=== PATIENT | male | born 1975 | race Hispanic/Latino ===

== ENCOUNTER 2018-08-26 13:28 | Emergency (ER) | payer OTHER ==
[~2018-08-26] VITALS: Ht 170.2 cm; Wt 62.3 kg
[2018-08-26] MEDS ORDERED: PLAV1TAB2 PO (13:35)
[2018-08-26 14:08] LABS: HEMATOCRIT 39.8 % (42.0-52.0); HEMOGLOBIN 13.7 g/dl (13.5-17.5); MEAN CORPUSCULAR HEMOGLOBIN 30.5 pg (27.0-33.0); MEAN CORPUSCULAR HGB CONC 34.4 g/dl (32.0-36.5); MEAN CORPUSCULAR VOLUME 88.6 fl (80.0-96.0); PLATELET COUNT, AUTOMATED 188 10^3/uL (150-450); RED BLOOD COUNT 4.49 10^6/uL (4.30-6.10); WHITE BLOOD COUNT 4.6 10^3/uL (4.0-10.0)
[2018-08-26] MEDS ORDERED: ONDANSETRON 4MG/2ML VIAL (J2405) IV ONE (14:30)
[2018-08-26] MEDS ORDERED: NS 1,000 ML IV ONE ×2 (14:30→15:45)
[2018-08-26 14:35] LABS: ATYPICAL LYMPH 1 % (0-5); BASOPHILS 1 % (0-4); LYMPHOCYTES 32 % (16-52); MONOCYTES 15 % (0-8); NEUTROPHILS 42 % (35-75); PLATELET ESTIMATE NORMAL (NORMAL)
[2018-08-26 14:40] LABS: ALBUMIN 3.2 GM/DL (3.2-5.2); ALT/SGPT 14 U/L (12-78); BILIRUBIN,DIRECT 0.1 MG/DL (0.0-0.2); BILIRUBIN,TOTAL 0.4 MG/DL (0.2-1.0); BLOOD UREA NITROGEN 10 MG/DL (7-18); CALCIUM LEVEL 8.6 MG/DL (8.5-10.1); CARBON DIOXIDE LEVEL 27 MEQ/L (21-32); CHLORIDE LEVEL 103 MEQ/L (98-107); CREATININE FOR GFR 1.14 MG/DL (0.70-1.30); GLOMERULAR FILTRATION RATE > 60.0 (>60); GLUCOSE, FASTING 95 MG/DL (70-100); LIPASE 37 U/L (73-393); POTASSIUM SERUM 3.6 MEQ/L (3.5-5.1); SODIUM LEVEL 137 MEQ/L (136-145)
[2018-08-26] MEDS ORDERED: fentaNYL 100 MCG/2 ML INJECTION (J3010) IV ONE ×2 (14:45→16:30)
[2018-08-26] MEDS ORDERED: ACETAMINOPHEN TAB 650MG DOSE (2X325MG) PO ONE (15:00)
[2018-08-26] MEDS: GASTROGRAFIN SOLUTION 30ML PO SCH ×2 (15:14→15:50)
[2018-08-26] MEDS ORDERED: KETOROLAC 30 MG/ML VIAL (J1885) IV ONE (15:45)
[2018-08-26 16:25] LABS: INFLUENZA A AMPLIFICATION NEGATIVE (NEGATIVE); INFLUENZA B AMPLIFICATION NEGATIVE (NEGATIVE)
[2018-08-26] MEDS ORDERED: CIPROFLOXACIN 500 MG TAB PO ONE (16:30)
[2018-08-26] MEDS ORDERED: ISOVUE-370 76% 100ML VIAL (Q9967) As Ordered ONE (16:39)
--- NOTE | 2018-08-26 17:23 | REP ---
Clinical: Abdominal pain with fever and nausea and diarrhea. Technique: Axial contrast enhanced images from the lung bases to the pubic symphysis using oral (per protocol) and 100 ml Isovue 370 intravenous contrast material with coronal and sagittal re-formations. Comparison: None. Findings: Mucosal thickening throughout the colon is most compatible with acute pancolitis. The small bowel is relatively unremarkable. There is no evidence for bowel obstruction. No free air to suggest perforation. No free fluid, drainable collection or abscess. Liver, spleen, pancreas, gallbladder, bilateral adrenal glands and kidneys are normal. Pelvis demonstrates normal bladder and age appropriate prostate/seminal vesicles. No ascites. No free air. No significant adenopathy. Abdominal aorta without aneurysm or dissection. Lung bases are clear. Surrounding musculoskeletal structures are intact. Impression: Findings most compatible with infectious/inflammatory pancolitis. Electronically Signed by Britton Larsen MD 08/26/2018 05:14 P
[2018-08-26] MEDS ORDERED: ZOFR4TAB14 PO (17:28)
[2018-08-26] MEDS ORDERED: CIPR-249 PO (17:28)
[2018-08-26 17:32] VITALS: BP 118/65
== END 2018-08-26 17:40 | disposition home or self-care (01) ==
LOC: M ED 13:28
DX: A04.5 Campylobacter enteritis (principal); Z95.828 Presence of other vascular implants and grafts; Z72.0 Tobacco use; Z79.02 Long term (current) use of antithrombotics/antiplatelets; Z79.899 Other long term (current) drug therapy; Z88.1 Allergy status to other antibiotic agents; Z88.5 Allergy status to narcotic agent
CPT/HCPCS: 74177; 80048; 80076; 81001; 83605; 83690; 85025; 85652; 86140; 87507; 87631; 96361; 96374; 96375; 96376; 99284; J1885; J2405; J3010; Q9963; Q9967

== ENCOUNTER 2018-08-28 21:54 | Emergency (ER) | payer OTHER ==
[~2018-08-28] VITALS: Ht 170.2 cm; Wt 61.8 kg
[~2018-08-28 21:54] MED LIST: CIPR-249 PO; PLAV1TAB2 PO; ZOFR4TAB14 PO
[2018-08-28] MEDS ORDERED: BENA25CA4 PO (22:02)
[2018-08-28] MEDS ORDERED: AZITHROMYCIN 250 MG TAB PO ONE ×2 (22:15→22:30)
[2018-08-28] MEDS ORDERED: diphenhydrAMINE 25 MG CAP PO ONE (22:15)
[2018-08-28] MEDS ORDERED: predniSONE 20 MG TAB PO ONE ×2 (22:15→22:30)
[2018-08-28] MEDS ORDERED: diphenhydrAMINE 25 MG CAP PO SCH (22:30)
[2018-08-28 22:47] VITALS: BP 122/77
[2018-08-29] MEDS ORDERED: PRED20TA PO (19:23)
[2018-08-29] MEDS ORDERED: PEPC1TAB5 PO (19:24)
== END 2018-08-28 22:48 | disposition home or self-care (01) ==
LOC: M ED 21:54
DX: T36.8X5A Adverse effect of other systemic antibiotics, initial encounter (principal); R21 Rash and other nonspecific skin eruption

== ENCOUNTER 2018-08-29 17:31 | Emergency (ER) | payer OTHER ==
[~2018-08-29] VITALS: Ht 170.2 cm; Wt 61.8 kg
[~2018-08-29 17:31] MED LIST changes: +BENA25CA4 PO
[2018-08-29] MEDS ORDERED: LORATADINE 10 MG TAB PO ONE (18:15)
[2018-08-29] MEDS ORDERED: FAMOTIDINE 20 MG TAB PO ONE (18:15)
[2018-08-29] MEDS ORDERED: ALBUTEROL SULFATE 2.5 MG/0.5 ML INH NEB SOLN INH ONE (18:15)
[2018-08-29] MEDS ORDERED: PRED20TA PO (19:23)
[2018-08-29] MEDS ORDERED: PEPC1TAB5 PO (19:24)
[2018-08-29 19:49] VITALS: BP 126/70
== END 2018-08-29 19:51 | disposition home or self-care (01) ==
LOC: M ED 17:31
DX: R21 Rash and other nonspecific skin eruption (principal); L50.0 Allergic urticaria; R07.0 Pain in throat; T36.8X5A Adverse effect of other systemic antibiotics, initial encounter; Z88.5 Allergy status to narcotic agent; Z88.1 Allergy status to other antibiotic agents; Z79.899 Other long term (current) drug therapy; Z79.02 Long term (current) use of antithrombotics/antiplatelets

== ENCOUNTER → 2019-03-06 | Outpatient (CLI) | payer OTHER ==
[~2019-03-06] MED LIST changes: +PEPC1TAB5 PO; +PRED20TA PO
--- NOTE | 2019-03-06 10:57 | REP ---
Clinical: Persistent asthma . Comparison: None . Technique: PA and lateral. Findings: The mediastinum and cardiac silhouette are normal. The lung lundy are clear and without acute consolidation, effusion, or pneumothorax. The skeletal structures are intact and normal. Impression: 1. No acute cardiopulmonary process or focal consolidation. Electronically Signed by Britton Larsen MD 03/06/2019 10:48 A
== END ==
LOC: M SMT 10:28
PROVIDERS: ATTEND Internal Medicine Pulmonary Disease
DX: J45.40 Moderate persistent asthma, uncomplicated (principal)

== ENCOUNTER → 2019-07-17 | Outpatient (REF) | payer OTHER ==
[2019-07-17 12:33] LABS: PLATELET COUNT, AUTOMATED 240 10^3/uL (150-450)
[2019-07-17 12:59] LABS: PARTIAL THROMBOPLASTIN TIME 26.7 SECONDS (25.0-38.4)
[2019-07-17 13:02] LABS: INR 0.96; PROTHROMBIN TIME 12.5 SECONDS (11.8-14.0)
== END ==
LOC: M LABDRAW1 11:38
PROVIDERS: ATTEND Physician Assistant
DX: Z01.812 Encounter for preprocedural laboratory examination (principal); M47.892 Other spondylosis, cervical region

== ENCOUNTER → 2020-01-18 | Outpatient (CLI) | payer OTHER | LOC: M LABSMTC 10:23 | PROVIDERS: ATTEND Physical Medicine & Rehabilitation | DX: Z11.59 Encounter for screening for other viral diseases (principal) | CPT/HCPCS: C9803; U0003 ==